=== PATIENT | male | born 1995 | race Caucasian/White ===

== ENCOUNTER 2017-12-22 14:39 | Emergency (ER) | payer MEDICAID ==
[~2017-12-22] VITALS: Ht 175.3 cm; Wt 99.2 kg
[~2017-12-22 14:39] MED LIST: ESCI10TA PO; MUPI15CR TP; TRAZ-143 PO
[2017-12-22 14:52] VITALS: BP 131/86
[2017-12-22] MEDS ORDERED: CLOT12CR TOP (15:30)
== END 2017-12-22 15:58 | disposition home or self-care (01) ==
LOC: ER 14:39
DX: B35.3 Tinea pedis (principal); F15.10 Other stimulant abuse, uncomplicated; Z59.0 Homelessness; Z79.899 Other long term (current) drug therapy
CPT/HCPCS: 99283

== ENCOUNTER 2020-04-03 17:23 | Inpatient (IN) | payer MEDICAID ==
[~2020-04-03] VITALS: Ht 177.8 cm; Wt 103.0 kg
[~2020-04-03 17:23] MED LIST changes: +CLOT12CR TOP; -TRAZ-143 PO; +TRAZ-251 PO
[2020-04-03] MEDS ORDERED: mupirocin 2% ointment 22GM TP STA (18:36)
[2020-04-03] MEDS ORDERED: ketorolac tromethamine 15mg/ml inj. IV ONE ×2 (18:40→19:05)
[2020-04-03] MEDS ORDERED: ondansetron/PF 4mg/2ml inj IV ONE (18:40)
[2020-04-03] MEDS ORDERED: normal saline 1000ML IV soln IVB ONE ×3 (18:40→21:05)
[2020-04-03] MEDS ORDERED: ketorolac trometh. 30mg/ml inj. IV ONE (19:05)
[2020-04-03 19:44] LABS: BASOPHILS # (AUTO) 0.1 X10'3 (0-0.2); BASOPHILS % (AUTO) 0.3 % (0-1); EOSINOPHILS % (AUTO) 0.1 % (0-6); HEMATOCRIT 42.2 % (42.0-52.0); HEMOGLOBIN 14.8 g/dl (14.0-17.9); LYMPHOCYTES # (AUTO) 1.9 X10'3 (1.1-4.8); LYMPHOCYTES % (AUTO) 8.3 % (21-51); MEAN CORPUSCULAR HEMOGLOBIN 28.7 PG (27.0-31.0); MEAN CORPUSCULAR HGB CONC 35.1 g/dL (33.0-36.5); MEAN CORPUSCULAR VOLUME 81.9 FL (78-98); MEAN PLATELET VOLUME 9.8 FL (7.4-10.4); MONOCYTES # (AUTO) 1.5 X10'3 (0-0.9); MONOCYTES % (AUTO) 6.7 % (2-12); NEUTROPHILS # (AUTO) 19.7 X10'3 (1.8-7.7); NEUTROPHILS % (AUTO) 84.6 % (42-75); PLATELET COUNT 189 X10'3 (140-440); RED BLOOD COUNT 5.15 X10'6 (4.70-6.10); RED CELL DISTRIBUTION WIDTH 14.1 % (11.5-14.5); WHITE BLOOD COUNT 23.2 X10'3 (4.5-11.0)
[2020-04-03 19:53] LABS: ALANINE AMINOTRANSFERASE 36 U/L (12-78); ALBUMIN 4.2 G/DL (3.4-5.0); ALBUMIN/GLOBULIN RATIO 1.1 (1.1-1.5); ALKALINE PHOSPHATASE 94 IU/L (46-116); ANION GAP 17 (8-16); ASPARTATE AMINO TRANSFERASE 132 U/L (10-37); BILIRUBIN,TOTAL 2.1 MG/DL (0.1-1.0); BLOOD UREA NITROGEN 39 MG/DL (7-18); BUN/CREATININE RATIO 8.2 (5.4-32.0); CHLORIDE 97 MMOL/L (99-107); CREATININE 4.76 MG/DL (0.60-1.10); GLUCOSE 124 MG/DL (70-104); POTASSIUM 3.5 MMOL/L (3.5-5.1); SODIUM 135 MMOL/L (135-145); TOTAL CARBON DIOXIDE 21.5 MMOL/L (24-32); eGFR 15 ML/MIN
[2020-04-03 21:31] LABS: CKMB RELATIVE INDEX 0.3 RATIO (0-2.5); CREATINE KINASE 5422 U/L (39-308)
--- NOTE | 2020-04-03 21:32 | NUR ---
Pt. to CT
[2020-04-03 21:39] LABS: LIPASE < 50 U/L (73-393)
[2020-04-03 21:55] LABS: CLARITY,URINE SLIGHTLY CLOUDY (Clear); COLOR,URINE YELLOW (Yellow); GLUCOSE, URINE NEGATIVE (Neg); KETONES,URINE TRACE mg/dl (Neg); LEUKOCYTE ESTERASE ,URINE NEGATIVE (Neg); NITRITES, URINE NEGATIVE (Neg); OCCULT BLOOD,URINE LARGE (Neg); PH,URINE 5.5 (4.8-8.0); PROTEIN,URINE 30 mg/dl (Neg); UROBILINOGEN,URINE 0.2 E.U/dL (0.2-1.0)
[2020-04-03] MEDS ORDERED: NO HOME MEDS (22:00)
[2020-04-03 22:01] LABS: BACTERIA,URINE FEW /HPF (Neg); RBC,URINE NONE SEEN /HPF (0-2); SQUAMOUS EPITHELIAL CELL,UR FEW /LPF (FEW); UA COLLECTION TYPE CLN CATCH MIDSTREAM; WBC,URINE 0-4 /HPF (0-4)
[2020-04-03] MEDS ORDERED: ondansetron/PF 4mg/2ml inj IV PRN (22:25)
[2020-04-03] MEDS ORDERED: potassium Cl 20 mEq SR tablet PO PRN (22:25)
[2020-04-03] MEDS ORDERED: mag hydrox/Alum hydrox/simeth 30ml oral suspension PO PRN (22:25)
[2020-04-03] MEDS ORDERED: potassium CL 10mEq/100ml bag 100 ML IV PRN ×2 (22:25)
[2020-04-03] MEDS ORDERED: magnesium hydroxide 30ml (MOM) UD suspension PO PRN (22:25)
[2020-04-03 22:55] LABS: URINE AMPHETAMINE SCREEN POSITIVE (Neg); URINE BARBITUATE SCREEN NEGATIVE (Neg); URINE BENZODIAZEPINES SCREEN NEGATIVE (Neg); URINE CANNABINOID SCREEN POSITIVE (Neg); URINE COCAINE SCREEN NEGATIVE (Neg); URINE METHADONE SCREEN NEGATIVE (Neg); URINE OPIATE SCREEN NEGATIVE (Neg); URINE PHENCYCLIDINE SCREEN NEGATIVE (Neg)
[2020-04-03] MEDS: sodium bicarbonate (8.4%) inj. 150 MEQ in dextrose 5%-water 1,000 ML IV SCH (23:51)
[2020-04-03] MEDS: normal saline 1000ml 1,000 ML IV SCH (23:51)
[2020-04-04 01:50] VITALS: BP 91/43
--- NOTE | 2020-04-04 06:46 | NUR ---
Patient in room [facility]TH[facility] 4023. I have received report from Kelly JAVIER and had the opportunity to ask questions and assume patient care.
[2020-04-04 07:00] VITALS: BP 99/46
[2020-04-04 07:00] LABS: BASOPHILS # (AUTO) 0.1 X10'3 (0-0.2); BASOPHILS % (AUTO) 0.5 % (0-1); EOSINOPHILS # (AUTO) 0.1 X10'3 (0-0.9); EOSINOPHILS % (AUTO) 0.7 % (0-6); HEMATOCRIT 36.7 % (42.0-52.0); HEMOGLOBIN 12.8 g/dl (14.0-17.9); LYMPHOCYTES # (AUTO) 3.1 X10'3 (1.1-4.8); LYMPHOCYTES % (AUTO) 24.5 % (21-51); MEAN CORPUSCULAR HEMOGLOBIN 28.6 PG (27.0-31.0); MEAN CORPUSCULAR HGB CONC 34.8 g/dL (33.0-36.5); MEAN CORPUSCULAR VOLUME 82.2 FL (78-98); MEAN PLATELET VOLUME 9.8 FL (7.4-10.4); MONOCYTES # (AUTO) 1.3 X10'3 (0-0.9); MONOCYTES % (AUTO) 10.2 % (2-12); NEUTROPHILS # (AUTO) 8.1 X10'3 (1.8-7.7); NEUTROPHILS % (AUTO) 64.1 % (42-75); PLATELET COUNT 162 X10'3 (140-440); RED BLOOD COUNT 4.47 X10'6 (4.70-6.10); RED CELL DISTRIBUTION WIDTH 14.2 % (11.5-14.5); WHITE BLOOD COUNT 12.7 X10'3 (4.5-11.0)
[2020-04-04 07:17] LABS: ALANINE AMINOTRANSFERASE 40 U/L (12-78); ALBUMIN 3.3 G/DL (3.4-5.0); ALKALINE PHOSPHATASE 71 IU/L (46-116); ANION GAP 12 (8-16); ASPARTATE AMINO TRANSFERASE 112 U/L (10-37); BILIRUBIN,TOTAL 1.1 MG/DL (0.1-1.0); BLOOD UREA NITROGEN 34 MG/DL (7-18); BUN/CREATININE RATIO 15.5 (5.4-32.0); CALCIUM 7.9 MG/DL (8.5-10.1); CHLORIDE 105 MMOL/L (99-107); GLUCOSE 99 MG/DL (70-104); SODIUM 141 MMOL/L (135-145); TOTAL CARBON DIOXIDE 24.5 MMOL/L (24-32); TOTAL PROTEIN 6.5 G/DL (6.4-8.2); eGFR 37 ML/MIN
--- NOTE | 2020-04-04 07:48 | NUR ---
PAGER ID: [phone] MESSAGE: Alexis Saldana [id number]- K 3.0, per protocol it will be replaced parth. thank you. Marissa Cardona
[2020-04-04] MEDS: K and/or MAG REPLACEMENT MC SCH ×2 (08:00→20:00)
[2020-04-04] MEDS: normal saline 1000ml 1,000 ML IV SCH ×2 (08:22→18:22)
--- NOTE | 2020-04-04 09:44 | NUR ---
PAGER ID: [phone] MESSAGE: Alexis Saldana #[id number]- Pt is pretty anxious and would like to get something for generalized pain. Please Marissa Bruno
[2020-04-04 10:00] VITALS: BP 127/76
[2020-04-04] MEDS: LORazepam 1 MG tablet PO PRN (10:09)
[2020-04-04] MEDS: HYDROcodone/acetaminophen 5mg/325mg tablet PO PRN (10:43)
[2020-04-04] MEDS ORDERED: haloperidol lactate 5mg/ml inj IM ONE (11:25)
[2020-04-04] MEDS: sodium bicarbonate (8.4%) inj. 150 MEQ in dextrose 5%-water 1,000 ML IV SCH ×2 (12:05→21:25)
[2020-04-04] MEDS ORDERED: LORazepam 1 MG tablet PO ONE (13:30)
[2020-04-04] MEDS: LORazepam 1 MG tablet PO SCH (17:22)
[2020-04-04 18:00] VITALS: BP 118/64
--- NOTE | 2020-04-04 18:15 | NUR ---
RECEIVED REPORT FROM ISAIAH JAVIER AND ASSUMED PATIENT CARE
--- NOTE | 2020-04-04 18:41 | NUR ---
Problems reprioritized. Patient report given, questions answered & plan of care reviewed with Kelly Alcazar.
[2020-04-04] MEDS ORDERED: QUEtiapine 25mg tablet PO SCH (21:00)
[2020-04-05] MEDS: normal saline 1000ml 1,000 ML IV SCH ×2 (00:36→10:17)
[2020-04-05] MEDS: sodium bicarbonate (8.4%) inj. 150 MEQ in dextrose 5%-water 1,000 ML IV SCH ×2 (00:36→10:17)
[2020-04-05] MEDS: acetaminophen 325mg tablet PO PRN (05:35)
[2020-04-05 06:02] LABS: BASOPHILS % (AUTO) 0.5 % (0-1); EOSINOPHILS # (AUTO) 0.1 X10'3 (0-0.9); EOSINOPHILS % (AUTO) 1.4 % (0-6); HEMATOCRIT 33.6 % (42.0-52.0); HEMOGLOBIN 11.8 g/dl (14.0-17.9); LYMPHOCYTES # (AUTO) 2.9 X10'3 (1.1-4.8); LYMPHOCYTES % (AUTO) 38.6 % (21-51); MEAN CORPUSCULAR HEMOGLOBIN 29.4 PG (27.0-31.0); MEAN CORPUSCULAR HGB CONC 35.3 g/dL (33.0-36.5); MEAN CORPUSCULAR VOLUME 83.3 FL (78-98); MEAN PLATELET VOLUME 9.7 FL (7.4-10.4); MONOCYTES # (AUTO) 0.7 X10'3 (0-0.9); MONOCYTES % (AUTO) 8.8 % (2-12); NEUTROPHILS # (AUTO) 3.9 X10'3 (1.8-7.7); NEUTROPHILS % (AUTO) 50.7 % (42-75); PLATELET COUNT 137 X10'3 (140-440); RED BLOOD COUNT 4.04 X10'6 (4.70-6.10); RED CELL DISTRIBUTION WIDTH 14.3 % (11.5-14.5); WHITE BLOOD COUNT 7.6 X10'3 (4.5-11.0)
[2020-04-05 06:10] VITALS: BP 108/59
--- NOTE | 2020-04-05 06:27 | NUR ---
Patient in room [facility]TH[facility] 4023. I have received report from Kelly JAVIER and had the opportunity to ask questions and assume patient care.
--- NOTE | 2020-04-05 06:29 | NUR ---
REPORT GIVEN TO MIGUELITO JAVIER
[2020-04-05 06:34] LABS: ALANINE AMINOTRANSFERASE 36 U/L (12-78); ALBUMIN 2.8 G/DL (3.4-5.0); ALKALINE PHOSPHATASE 55 IU/L (46-116); ANION GAP 6 (8-16); ASPARTATE AMINO TRANSFERASE 89 U/L (10-37); BILIRUBIN,TOTAL 0.3 MG/DL (0.1-1.0); BLOOD UREA NITROGEN 19 MG/DL (7-18); BUN/CREATININE RATIO 15.8 (5.4-32.0); CALCIUM 8.1 MG/DL (8.5-10.1); CHLORIDE 110 MMOL/L (99-107); GLUCOSE 94 MG/DL (70-104); POTASSIUM 3.4 MMOL/L (3.5-5.1); SODIUM 145 MMOL/L (135-145); TOTAL CARBON DIOXIDE 29.4 MMOL/L (24-32); TOTAL PROTEIN 5.7 G/DL (6.4-8.2); eGFR 74 ML/MIN
[2020-04-05] MEDS: K and/or MAG REPLACEMENT MC SCH ×2 (08:00→20:00)
[2020-04-05] MEDS: LORazepam 1 MG tablet PO SCH ×3 (08:18→17:00)
[2020-04-05] MEDS: potassium Cl 20 mEq SR tablet PO PRN ×3 (08:18→18:31)
[2020-04-05] MEDS: HYDROcodone/acetaminophen 5mg/325mg tablet PO PRN ×2 (08:21→18:30)
[2020-04-05 10:00] VITALS: BP 99/45
[2020-04-05 18:00] VITALS: BP 107/61
--- NOTE | 2020-04-05 18:24 | NUR ---
Problems reprioritized. Patient report given, questions answered & plan of care reviewed with [place].
--- NOTE | 2020-04-05 18:45 | NUR ---
discussed need for sitter with nurse discharge planner. states that pt is not currently suicidal and day Charge talked with mental health floor and stated pt does not need a sitter at this time. will do freq rounding on patient.
[2020-04-05] MEDS: LORazepam 1 MG tablet PO PRN (21:48)
[2020-04-05 22:27] VITALS: BP 108/57
[2020-04-06 06:10] VITALS: BP 112/64
--- NOTE | 2020-04-06 06:20 | NUR ---
reported to days. noted pt waiting placement. slept well last noc.
--- NOTE | 2020-04-06 06:29 | NUR ---
Patient in room [facility]TH[facility] 4023. I have received report from [place] JAVIER and had the opportunity to ask questions and assume patient care.
[2020-04-06 07:48] LABS: BASOPHILS % (AUTO) 0.4 % (0-1); EOSINOPHILS # (AUTO) 0.2 X10'3 (0-0.9); EOSINOPHILS % (AUTO) 2.6 % (0-6); HEMOGLOBIN 12.1 g/dl (14.0-17.9); LYMPHOCYTES # (AUTO) 3.2 X10'3 (1.1-4.8); LYMPHOCYTES % (AUTO) 44.8 % (21-51); MEAN CORPUSCULAR HEMOGLOBIN 28.8 PG (27.0-31.0); MEAN CORPUSCULAR HGB CONC 34.7 g/dL (33.0-36.5); MEAN CORPUSCULAR VOLUME 83.1 FL (78-98); MEAN PLATELET VOLUME 10.3 FL (7.4-10.4); MONOCYTES # (AUTO) 0.5 X10'3 (0-0.9); MONOCYTES % (AUTO) 6.4 % (2-12); NEUTROPHILS # (AUTO) 3.2 X10'3 (1.8-7.7); NEUTROPHILS % (AUTO) 45.8 % (42-75); PLATELET COUNT 152 X10'3 (140-440); RED BLOOD COUNT 4.21 X10'6 (4.70-6.10); RED CELL DISTRIBUTION WIDTH 13.8 % (11.5-14.5); WHITE BLOOD COUNT 7.1 X10'3 (4.5-11.0)
[2020-04-06] MEDS: K and/or MAG REPLACEMENT MC SCH (08:00)
[2020-04-06] MEDS: LORazepam 1 MG tablet PO SCH ×2 (08:06→12:57)
[2020-04-06] MEDS: acetaminophen 325mg tablet PO PRN (08:07)
[2020-04-06 08:30] LABS: ALANINE AMINOTRANSFERASE 34 U/L (12-78); ALBUMIN 2.9 G/DL (3.4-5.0); ALBUMIN/GLOBULIN RATIO 0.9 (1.1-1.5); ALKALINE PHOSPHATASE 57 IU/L (46-116); ANION GAP 9 (8-16); ASPARTATE AMINO TRANSFERASE 60 U/L (10-37); BILIRUBIN,TOTAL 0.2 MG/DL (0.1-1.0); BLOOD UREA NITROGEN 18 MG/DL (7-18); CALCIUM 8.4 MG/DL (8.5-10.1); CHLORIDE 110 MMOL/L (99-107); CREATININE 1.06 MG/DL (0.60-1.10); GLUCOSE 85 MG/DL (70-104); SODIUM 145 MMOL/L (135-145); TOTAL CARBON DIOXIDE 26.2 MMOL/L (24-32); eGFR 85 ML/MIN
[2020-04-06 10:00] VITALS: BP 104/50
--- NOTE | 2020-04-06 10:22 | NUR ---
Problems reprioritized. Patient report given, questions answered & plan of care reviewed with Ingrid JAVIER.
--- NOTE | 2020-04-06 13:33 | NUR ---
PAGER ID: [phone] MESSAGE: [phone] RE: BONIF[place]IO [id number] PATIENT IS GOING TO [facility], NEEDS DISCHARGE COMPLETED IN [facility] TECH PLEASE.
[2020-04-09] MEDS ORDERED: NICO-631 TD (11:51)
[2020-04-09] MEDS ORDERED: PENI-88 PO (11:51)
[2020-04-09] MEDS ORDERED: TRAZ-251 PO (11:51)
[2020-04-09] MEDS ORDERED: IBUP-1984 PO (11:51)
== END 2020-04-06 14:40 | DRG 469 ==
LOC: ER 17:23 → ED HOLD 22:22 → ORTHO 4S 04-04 01:42
PROVIDERS: ADMIT Internal Medicine; ATTEND Internal Medicine
DX: N17.9 Acute kidney failure, unspecified (principal); M62.82 Rhabdomyolysis; D72.829 Elevated white blood cell count, unspecified; F15.10 Other stimulant abuse, uncomplicated; E87.6 Hypokalemia; E86.0 Dehydration; F23 Brief psychotic disorder; F31.9 Bipolar disorder, unspecified; F41.9 Anxiety disorder, unspecified; Z59.0 Homelessness
CPT/HCPCS: 36415; 71045; 74176; 80053; 80305; 81001; 82550; 82553; 83605; 83690; 84145; 85025; 87040; 87081; 93005; 93306; 99285; G0378; J1630; J1885; J2405; J7030

== ENCOUNTER 2021-06-27 03:45 | Emergency (ER) | payer MEDICAID ==
[~2021-06-27] VITALS: Ht 177.8 cm; Wt 86.4 kg
[~2021-06-27 03:45] MED LIST changes: -CLOT12CR TOP; -ESCI10TA PO; +IBUP-1984 PO; -MUPI15CR TP; +NICO-631 TD; +NO HOME MEDS; +PENI-88 PO
[2021-06-27 03:54] VITALS: BP 142/84
== END 2021-06-27 04:20 | disposition home or self-care (01) ==
LOC: ER 03:46
DX: R11.0 Nausea (principal); Z20.822 Contact with and (suspected) exposure to COVID-19; R05 Cough; R09.89 Other specified symptoms and signs involving the circulatory and respiratory systems; R50.9 Fever, unspecified; F41.9 Anxiety disorder, unspecified; F31.9 Bipolar disorder, unspecified; F15.90 Other stimulant use, unspecified, uncomplicated; Z59.0 Homelessness; Z72.89 Other problems related to lifestyle; Z79.2 Long term (current) use of antibiotics; Z79.899 Other long term (current) drug therapy
CPT/HCPCS: 36415; 99283; U0003; U0005

== ENCOUNTER 2021-08-02 22:27 | Emergency (ER) | payer MEDICAID ==
[~2021-08-02] VITALS: Ht 177.8 cm; Wt 88.6 kg
[2021-08-03] MEDS ORDERED: acetaminophen 325mg tablet PO ONE (00:45)
[2021-08-03] MEDS ORDERED: ibuprofen tablet 400 MG TABLET PO ONE (00:45)
[2021-08-03 01:08] VITALS: BP 132/86
--- NOTE | 2021-08-03 01:12 | NUR ---
PT SEEN, TREATED AND D/C BY PROVIDER FROM TRIAGE
== END 2021-08-03 01:11 | disposition home or self-care (01) ==
LOC: ER 22:28
DX: M25.561 Pain in right knee (principal); M25.562 Pain in left knee; R07.89 Other chest pain; R00.2 Palpitations; F41.9 Anxiety disorder, unspecified; F31.9 Bipolar disorder, unspecified; F17.200 Nicotine dependence, unspecified, uncomplicated; F15.90 Other stimulant use, unspecified, uncomplicated; Z72.89 Other problems related to lifestyle; Z59.00 Homelessness unspecified; Z79.2 Long term (current) use of antibiotics; Z79.899 Other long term (current) drug therapy
CPT/HCPCS: 93005; 99283

== ENCOUNTER 2021-12-22 05:26 | Emergency (ER) | payer MEDICAID ==
[~2021-12-22] VITALS: Ht 172.7 cm; Wt 72.7 kg
[2021-12-22 05:31] VITALS: BP 118/71
[2021-12-22] MEDS ORDERED: TETanus/Pertussis (Acell)/Diphther VAC/PF (Tdap-Adult) 0.5ml syringe IMVAC ONE (05:40)
== END 2021-12-22 06:02 ==
LOC: ER 05:26
DX: R51.9 Headache, unspecified (principal); F15.90 Other stimulant use, unspecified, uncomplicated; Z59.00 Homelessness unspecified; Z79.2 Long term (current) use of antibiotics; Z79.899 Other long term (current) drug therapy; Z72.89 Other problems related to lifestyle
CPT/HCPCS: 90471; 90715; 99283

== ENCOUNTER 2022-01-03 01:46 | Emergency (ER) | payer MEDICAID ==
[~2022-01-03] VITALS: Ht 182.9 cm; Wt 81.8 kg
[2022-01-03 01:52] VITALS: BP 113/65
== END 2022-01-03 03:43 | disposition home or self-care (01) ==
LOC: ER 01:47
DX: S70.212A Abrasion, left hip, initial encounter (principal); M25.512 Pain in left shoulder; M25.562 Pain in left knee; F31.9 Bipolar disorder, unspecified; F15.10 Other stimulant abuse, uncomplicated; Z56.0 Unemployment, unspecified; Y04.0XXA Assault by unarmed brawl or fight, initial encounter; Y93.89 Activity, other specified; Y92.89 Other specified places as the place of occurrence of the external cause; Y99.8 Other external cause status
CPT/HCPCS: 73030; 73501; 99284

== ENCOUNTER 2022-03-05 14:51 | Emergency (ER) | payer MEDICAID ==
[~2022-03-05] VITALS: Ht 167.6 cm; Wt 81.0 kg
[2022-03-05] MEDS ORDERED: bacitracin 15gm ointment TP ONE (15:40)
[2022-03-05 15:49] VITALS: BP 100/63
== END 2022-03-05 16:12 | disposition home or self-care (01) ==
LOC: ER 14:52
DX: S90.812A Abrasion, left foot, initial encounter (principal); S90.811A Abrasion, right foot, initial encounter; M79.673 Pain in unspecified foot; R11.0 Nausea; F15.90 Other stimulant use, unspecified, uncomplicated; R42 Dizziness and giddiness; F41.9 Anxiety disorder, unspecified; F31.9 Bipolar disorder, unspecified; F12.90 Cannabis use, unspecified, uncomplicated; Z72.89 Other problems related to lifestyle; Z59.00 Homelessness unspecified; Z88.0 Allergy status to penicillin; Z88.8 Allergy status to other drugs, medicaments and biological substances; Z79.899 Other long term (current) drug therapy; X58.XXXA Exposure to other specified factors, initial encounter; Y93.89 Activity, other specified; Y92.89 Other specified places as the place of occurrence of the external cause; Y99.8 Other external cause status
CPT/HCPCS: 99282; 99283